=== PATIENT | female | born 1935 | race Caucasian/White ===

== ENCOUNTER 2019-10-22 08:39 | Day surgery (SDC) | payer MEDICARE ==
[2019-10-17 16:00] LABS: ALBUMIN 3.7 G/DL (3.4-5.0); ALKALINE PHOSPHATASE 92 IU/L (46-116); BLOOD UREA NITROGEN 17 MG/DL (7-18); BUN/CREATININE RATIO 25.8 (6.6-38.0); CALCIUM 9.3 MG/DL (8.5-10.1); CHLORIDE 108 MMOL/L (99-107); CREATININE 0.66 MG/DL (0.40-0.90); PRE OP ALT 21 U/L (30-65); PRE OP ANION GAP 7 (8-16); PRE OP AST 23 U/L (10-37); PRE OP BILIRUB, TOTAL 0.3 MG/DL (0.0-1.0); PRE OP GLUCOSE 80 MG/DL (70-104); PRE OP POTASSIUM 3.8 MMOL/L (3.4-5.1); PRE OP SODIUM 142 MMOL/L (135-145); TOTAL CARBON DIOXIDE 27.1 MMOL/L (24-32); TOTAL PROTEIN 7.4 G/DL (6.4-8.2); eGFR 86 ML/MIN
[2019-10-17 16:12] LABS: BASOPHILS % (AUTO) 0.7 % (0-1); EOSINOPHILS # (AUTO) 0.2 X10'3 (0-0.9); EOSINOPHILS % (AUTO) 3.9 % (0-6); LYMPHOCYTES # (AUTO) 1.7 X10'3 (1.1-4.8); LYMPHOCYTES % (AUTO) 40.9 % (21-51); MEAN CORPUSCULAR HEMOGLOBIN 29.6 PG (27.0-31.0); MEAN CORPUSCULAR HGB CONC 33.3 g/dL (33.0-36.5); MEAN CORPUSCULAR VOLUME 88.9 FL (78-98); MEAN PLATELET VOLUME 8.7 FL (7.4-10.4); MONOCYTES # (AUTO) 0.6 X10'3 (0-0.9); MONOCYTES % (AUTO) 14.7 % (2-12); NEUTROPHILS # (AUTO) 1.7 X10'3 (1.8-7.7); NEUTROPHILS % (AUTO) 39.8 % (42-75); PRE OP HEMATOCRIT 42.2 % (35.0-45.0); PRE OP HEMOGLOBIN 14.1 g/dL (12.0-16.0); PRE OP PLATELET COUNT 226 X10'3 (140-440); RED BLOOD COUNT 4.75 X10'6 (4.20-5.60); RED CELL DISTRIBUTION WIDTH 13.1 % (11.5-14.5)
[2019-10-17 16:14] LABS: CLARITY,URINE CLEAR (Clear); COLOR,URINE YELLOW (Yellow); GLUCOSE, URINE NEGATIVE (Neg); KETONES,URINE NEGATIVE (Neg); LEUKOCYTE ESTERASE ,URINE NEGATIVE (Neg); NITRITES, URINE NEGATIVE (Neg); OCCULT BLOOD,URINE TRACE-INTACT (Neg); PH,URINE 5.5 (4.8-8.0); PROTEIN,URINE NEGATIVE (Neg); UROBILINOGEN,URINE 0.2 E.U/dL (0.2-1.0)
[2019-10-17 16:17] LABS: UA COLLECTION TYPE CLN CATCH MIDSTREAM
[2019-10-17 16:24] LABS: MUCUS STRANDS NONE SEEN /LPF (Neg); SQUAMOUS EPITHELIAL CELL,UR FEW /LPF (FEW); WBC,URINE 0-4 /HPF (0-4)
[2019-10-17 16:25] LABS: BACTERIA,URINE FEW /HPF (Neg)
[~2019-10-22] VITALS: Ht 157.5 cm; Wt 68.0 kg
[~2019-10-22 08:39] MED LIST: BIMA2.5D4 EACHEYE; FLOOS RIGHT EAR; TIMO5DRO20 RIGHTEYE; clindamycin-Cleocin 900mg/D5W 50 ML IV ONE; famotidine 20mg tablet PO ONE; ringers solution, lacted 1,000 ML IV SCH
[2019-10-22 08:45] VITALS: BP 115/71
[2019-10-22] MEDS ORDERED: ringers solution, lacted 1,000 ML IV SCH (10:43)
[2019-10-22] MEDS ORDERED: proCHLORperazine 10 MG/2 ml inj IV PRN (10:45)
[2019-10-22] MEDS ORDERED: morphine 2 MG/ML inj. syringe IV PRN (10:45)
[2019-10-22] MEDS ORDERED: ondansetron/PF 4mg/2ml inj IV PRN (10:45)
[2019-10-22] MEDS ORDERED: meperidine/PF 25mg/ml syringe IV PRN ×3 (10:45)
[2019-10-22] MEDS ORDERED: morphine 4 MG/ML inj SYRINge IV PRN (10:45)
[2019-10-22] MEDS ORDERED: BUPIVAcaine/PF 2.5 mg/ml (0.25%) 30ml vial ONE (12:23)
[2019-10-22] MEDS ORDERED: ceFAZolin 1000mg inj ONE (12:23)
[2019-10-22] MEDS ORDERED: fentaNYL/PF 50MCG/1 ML 2ML syringe ONE (12:34)
[2019-10-22] MEDS ORDERED: rocuronium 10mg/ml inj IV ONE (12:37)
[2019-10-22] MEDS ORDERED: LIDOcaine 2% (20mg/ml) 5ml vial ONE (13:13)
[2019-10-22] MEDS ORDERED: propofol inj 20 ML IV ONE (13:13)
[2019-10-22 13:23] VITALS: BP 127/84
--- NOTE | 2019-10-22 13:23 | NUR ---
Received from OR via daylin, accompanied by Anesthesiologist TRIP and report given by Anesthesiolgist. VS WNL mask to 10L and patient responsive to questions. Bandaids x2 to abdomen present CDI, IVF at 100CC/hr to right wrist 20G.
[2019-10-22 13:33] VITALS: BP 119/58
[2019-10-22 13:43] VITALS: BP 126/83
[2019-10-22 13:53] VITALS: BP 132/70
--- NOTE | 2019-10-22 14:23 | NUR ---
Pt discharged to vehicle by wheelchair without incident. Bandaids remain CDI IV dc'd, pt verbalized understanding of all DC instructions. Pt belongings all returned to her. Pain meds called in by Doctors office to her pharmacy.
== END 2019-10-22 14:23 | disposition home or self-care (01) ==
LOC: PAS 08:39
PROVIDERS: ATTEND Surgery
DX: K76.89 Other specified diseases of liver (principal); E11.9 Type 2 diabetes mellitus without complications; M19.90 Unspecified osteoarthritis, unspecified site; Z85.9 Personal history of malignant neoplasm, unspecified; Z90.10 Acquired absence of unspecified breast and nipple; Z82.3 Family history of stroke; Z88.0 Allergy status to penicillin; Z88.2 Allergy status to sulfonamides; Z88.8 Allergy status to other drugs, medicaments and biological substances; Z90.49 Acquired absence of other specified parts of digestive tract; Z98.890 Other specified postprocedural states; Z90.710 Acquired absence of both cervix and uterus; Z79.899 Other long term (current) drug therapy
CPT/HCPCS: 36415; 47379; 71046; 80053; 81001; 82948; 85025; 85610; 85730; 93005; J0690; J2001; J2704; J3010; J3490; J7120; A4215; A4618; A7000

== ENCOUNTER 2020-09-25 02:39 | Inpatient (IN) | payer MEDICARE ==
[~2020-09-25] VITALS: Ht 154.9 cm; Wt 66.8 kg
[2020-09-25] VITALS (8 sets, daily range): BP systolic 114–144; BP diastolic 58–69
[~2020-09-25 02:39] MED LIST changes: -clindamycin-Cleocin 900mg/D5W 50 ML IV ONE; -famotidine 20mg tablet PO ONE; -ringers solution, lacted 1,000 ML IV SCH
[2020-09-25 03:51] LABS: ALANINE AMINOTRANSFERASE 19 U/L (12-78); ALBUMIN 3.3 G/DL (3.4-5.0); ALBUMIN/GLOBULIN RATIO 0.9 (1.1-1.5); ALKALINE PHOSPHATASE 102 IU/L (46-116); ANION GAP 11 (8-16); ASPARTATE AMINO TRANSFERASE 18 U/L (10-37); BILIRUBIN,TOTAL 0.3 MG/DL (0.1-1.0); BLOOD UREA NITROGEN 17 MG/DL (7-18); BUN/CREATININE RATIO 24.3 (6.6-38.0); CALCIUM 10.1 MG/DL (8.5-10.1); CHLORIDE 105 MMOL/L (99-107); GLUCOSE 160 MG/DL (70-104); POTASSIUM 3.9 MMOL/L (3.5-5.1); SODIUM 142 MMOL/L (135-145); TOTAL PROTEIN 7.1 G/DL (6.4-8.2); eGFR 80 ML/MIN
[2020-09-25 03:59] LABS: BASOPHILS % (AUTO) 0.8 % (0-1); EOSINOPHILS # (AUTO) 0.4 X10'3 (0-0.9); EOSINOPHILS % (AUTO) 6.6 % (0-6); HEMATOCRIT 38.2 % (35.0-45.0); HEMOGLOBIN 12.9 g/dl (12.0-16.0); LYMPHOCYTES % (AUTO) 36.1 % (21-51); MEAN CORPUSCULAR HEMOGLOBIN 31.3 PG (27.0-31.0); MEAN CORPUSCULAR HGB CONC 33.8 g/dL (33.0-36.5); MEAN CORPUSCULAR VOLUME 92.6 FL (78-98); MEAN PLATELET VOLUME 9.1 FL (7.4-10.4); MONOCYTES # (AUTO) 0.6 X10'3 (0-0.9); MONOCYTES % (AUTO) 11.9 % (2-12); NEUTROPHILS # (AUTO) 2.4 X10'3 (1.8-7.7); NEUTROPHILS % (AUTO) 44.6 % (42-75); PLATELET COUNT 186 X10'3 (140-440); RED BLOOD COUNT 4.13 X10'6 (4.20-5.60); RED CELL DISTRIBUTION WIDTH 13.6 % (11.5-14.5); WHITE BLOOD COUNT 5.4 X10'3 (4.5-11.0)
[2020-09-25 08:19] LABS: PARTIAL THROMBOPLASTIN TIME 25 SECONDS (22-32)
[2020-09-25] MEDS ORDERED: [UNRECOGNIZED DRUG - OTHER] EACHEYE (09:39)
[2020-09-25] MEDS ORDERED: nitroGLYCERIN 0.4mg SUBLingual tab SL PRN (10:10)
[2020-09-25] MEDS ORDERED: aminophylline 250mg/10ml inj. IV PRN (10:10)
[2020-09-25] MEDS ORDERED: magnesium 4gm in 100ml NS 100 ML IV PRN (10:10)
[2020-09-25] MEDS ORDERED: morphine 2 MG/ML inj. syringe IV PRN ×2 (10:10)
[2020-09-25] MEDS ORDERED: magnesium Cl slow-release 64mg tablet PO PRN (10:10)
[2020-09-25] MEDS ORDERED: acetaminophen 650mg rectal suppository RC PRN (10:10)
[2020-09-25] MEDS ORDERED: metoprolol tartrate 1mg/ml inj IV PRN (10:10)
[2020-09-25] MEDS ORDERED: ondansetron/PF 4mg/2ml inj IV PRN (10:10)
[2020-09-25] MEDS ORDERED: acetaminophen 325mg tablet PO PRN ×2 (10:10)
[2020-09-25] MEDS ORDERED: HYDROcodone/acetaminophen 5mg/325mg tablet PO PRN (10:10)
[2020-09-25] MEDS ORDERED: mag hydrox/Alum hydrox/simeth 30ml oral suspension PO PRN (10:10)
[2020-09-25] MEDS ORDERED: HYDROcodone/acetaminophen 10/325mg tab PO PRN (10:10)
[2020-09-25] MEDS ORDERED: bisacodyl 10mg suppository rectal RC PRN (10:10)
[2020-09-25] MEDS ORDERED: diphenhydrAMINE 25mg capsule PO PRN (10:10)
[2020-09-25] MEDS ORDERED: magnesium hydroxide 30ml (MOM) UD suspension PO PRN (10:10)
[2020-09-25] MEDS ORDERED: potassium Cl 20 mEq SR tablet PO PRN ×2 (10:10)
[2020-09-25] MEDS ORDERED: potassium Cl 40MEQ/1/2NS 520ml 520 ML IV PRN ×2 (10:10)
[2020-09-25] MEDS ORDERED: magnesium 2GM in 50ml NS 50 ML IV PRN (10:10)
[2020-09-25] MEDS ORDERED: regadenoson 0.4mg/5ml syringe IV PRN (10:10)
--- NOTE | 2020-09-25 10:34 | NUR ---
PT MOVED TO HOSPITAL BED. UP TO CHAIR. THEN BACK TO BED.
--- NOTE | 2020-09-25 11:05 | NUR ---
pt injected with dye by [employer] tech. no needs at this time. 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
[2020-09-25 12:33] LABS: HEMOGLOBIN A1C 7.4 % (4.5-6.2)
--- NOTE | 2020-09-25 14:10 | NUR ---
paged Dr Franco "PAGER ID: [phone] MESSAGE: [phone] Rina patient in ED with orders for tele Keli Schilling has resulted"
--- NOTE | 2020-09-25 14:15 | NUR ---
echo at bedside
--- NOTE | 2020-09-25 14:41 | NUR ---
DR TRACY AT BS
--- NOTE | 2020-09-25 14:51 | NUR ---
DR TRACY STATED PT WILL STILL BE ADMITTED TO TELE FOR OBSERVATION.
[2020-09-25] MEDS: normal saline 1000ml 1,000 ML IV SCH ×2 (15:20→23:30)
[2020-09-25 18:07] LABS: CLARITY,URINE CLEAR (Clear); COLOR,URINE YELLOW (Yellow); GLUCOSE, URINE NEGATIVE (Neg); KETONES,URINE NEGATIVE (Neg); LEUKOCYTE ESTERASE ,URINE NEGATIVE (Neg); NITRITES, URINE NEGATIVE (Neg); OCCULT BLOOD,URINE NEGATIVE (Neg); PROTEIN,URINE NEGATIVE (Neg); UA COLLECTION TYPE CLN CATCH MIDSTREAM; UROBILINOGEN,URINE 0.2 E.U/dL (0.2-1.0)
[2020-09-25] MEDS: K and/or MAG REPLACEMENT MC SCH (20:00)
[2020-09-25] MEDS ORDERED: latanoprost 0.005% 2.5ml ophthalmic drops EACHEYE SCH (21:00)
[2020-09-25] MEDS: heparin, porcine 5000 units/ml vial SQ SCH (21:09)
[2020-09-26 02:00] VITALS: BP 128/61
--- NOTE | 2020-09-26 06:42 | NUR ---
Patient in room PCU 3018. I have received report from Wu PAREKH and had the opportunity to ask questions and assume patient care.
--- NOTE | 2020-09-26 06:49 | NUR ---
Patient in room PCU 3018. I have received report from Shady PAREKH and had the opportunity to ask questions and assume patient care.
[2020-09-26 06:58] LABS: ALANINE AMINOTRANSFERASE 17 U/L (12-78); ALBUMIN 2.8 G/DL (3.4-5.0); ALBUMIN/GLOBULIN RATIO 0.8 (1.1-1.5); ALKALINE PHOSPHATASE 67 IU/L (46-116); ANION GAP 7 (8-16); ASPARTATE AMINO TRANSFERASE 13 U/L (10-37); BILIRUBIN,TOTAL 0.4 MG/DL (0.1-1.0); BLOOD UREA NITROGEN 13 MG/DL (7-18); BUN/CREATININE RATIO 20.3 (6.6-38.0); CALCIUM 8.5 MG/DL (8.5-10.1); CHLORIDE 110 MMOL/L (99-107); CHOL/HDL RATIO 3.6 (0.00-4.99); CHOLESTEROL 160 MG/DL (0-200); CREATININE 0.64 MG/DL (0.40-0.90); GLUCOSE 134 MG/DL (70-104); HDL CHOLESTEROL 45 MG/DL (35-60); LDL CHOLESTEROL 94 MG/DL (50-100); MAGNESIUM 1.8 MG/DL (1.5-2.4); PHOSPHORUS 2.9 MG/DL (2.3-4.5); POTASSIUM 3.5 MMOL/L (3.5-5.1); SODIUM 144 MMOL/L (135-145); TOTAL CARBON DIOXIDE 27.2 MMOL/L (24-32); TOTAL PROTEIN 6.1 G/DL (6.4-8.2); TRIGLYCERIDES 113 MG/DL (20-135); eGFR 89 ML/MIN
[2020-09-26 07:00] VITALS: BP 121/60
[2020-09-26 07:19] LABS: BASOPHILS % (AUTO) 0.7 % (0-1); EOSINOPHILS # (AUTO) 0.3 X10'3 (0-0.9); EOSINOPHILS % (AUTO) 5.5 % (0-6); HEMOGLOBIN 11.9 g/dl (12.0-16.0); LYMPHOCYTES # (AUTO) 1.8 X10'3 (1.1-4.8); LYMPHOCYTES % (AUTO) 38.2 % (21-51); MEAN CORPUSCULAR HEMOGLOBIN 29.3 PG (27.0-31.0); MEAN CORPUSCULAR HGB CONC 32.9 g/dL (33.0-36.5); MEAN CORPUSCULAR VOLUME 88.9 FL (78-98); MEAN PLATELET VOLUME 8.8 FL (7.4-10.4); MONOCYTES # (AUTO) 0.6 X10'3 (0-0.9); MONOCYTES % (AUTO) 12.4 % (2-12); NEUTROPHILS % (AUTO) 43.2 % (42-75); PLATELET COUNT 167 X10'3 (140-440); RED BLOOD COUNT 4.05 X10'6 (4.20-5.60); RED CELL DISTRIBUTION WIDTH 13.9 % (11.5-14.5); WHITE BLOOD COUNT 4.7 X10'3 (4.5-11.0)
[2020-09-26] MEDS: K and/or MAG REPLACEMENT MC SCH (08:00)
[2020-09-26] MEDS ORDERED: TIMOLOL MALEATE 0.25% ophth drops RIGHTEYE SCH (08:00)
[2020-09-26] MEDS: heparin, porcine 5000 units/ml vial SQ SCH (08:00)
[2020-09-26] MEDS: normal saline 1000ml 1,000 ML IV SCH (08:43)
[2020-09-26 11:00] VITALS: BP 129/76
[2020-09-26] MEDS ORDERED: PANT40TA54 PO (13:35)
[2020-09-26] MEDS ORDERED: LISI10TA4 PO (13:35)
[2020-09-26] MEDS ORDERED: METF-950 PO (13:35)
[2020-09-26] MEDS ORDERED: ASPI-611 PO (13:35)
--- NOTE | 2020-09-26 14:09 | NUR ---
DM Consult: Pt A1C 7.4 appropriate given geriatric age. Addendum: 09/26/20 at [address] Amended: Links added.
--- NOTE | 2020-09-26 15:15 | NUR ---
Patient stable for discharge per MD order. All discharge instructions reviewed with patient and all questions answered. New prescriptions sent electronically. PIV discontinued cannula intact. monitoring coordinator discontinued. Belongings collected and sent with patient. Patient walked with RN to [facility]. Mode of transport was taxi.
--- NOTE | 2020-09-28 13:34 | NUR ---
CASE MANAGEMENT DISCHARGE FOLLOW UP: Spoke with pt via telephone. Reports that she is feeling "pretty good," admits to some dizziness but she states this is normal due to history of inner ear imbalance; denies CP, SOB/difficulty breathing. Verbalizes understanding of s/sx requiring further evaluation/emergent assistance. Verbalizes understanding of new and current medications. States wants to talk to PCP about metformin before taking due to Rx handout advising caution in cases of liver dysfunction. Upon inquiry, she states that she does not have an appointment scheduled with [facility] yet, but that she is waiting for a callback to set up appointment. Provided pt with [facility]'s phone number in the event that she does not hear from them and needs to follow up. Reinforced MD advisement to check [facility] daily, at least once per day fasting in AM. 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 States that she has not picked it up because the pharmacist didn't tell her to. She also states that pharmacist did not discuss s/sx of hypoglycemia with pt, educated pt on symptoms and to check FSB[facility], if low to eat small snack or have some juice, she verbalizes understanding. Verbalizes understanding of the importance in making/keeping follow-up appointments. Pt would like to know if she can pick up truck driver the eye drops that the hospital used while she was admitted, notified pt that because the medications were not sent home with her on day of discharge that they have been disposed. States no further questions/concerns at this time.
== END 2020-09-26 15:15 | disposition home or self-care (01) | DRG 392 ==
LOC: ER 02:39 → ED HOLD 10:09 → EDBEDREQ 21:01 → PCU 3S 22:15
PROVIDERS: ADMIT Family Medicine; ATTEND Family Medicine
PROC: 4A02XM4 Measurement of Cardiac Total Activity, External Approach (ICD-10-PCS; principal; 2020-09-25)
PROC: 3E073KZ Introduction of Other Diagnostic Substance into Coronary Artery, Percutaneous Approach (ICD-10-PCS; 2020-09-25)
DX: K21.9 Gastro-esophageal reflux disease without esophagitis (principal); E11.9 Type 2 diabetes mellitus without complications; I10 Essential (primary) hypertension; M19.90 Unspecified osteoarthritis, unspecified site; Z96.652 Presence of left artificial knee joint; Z66 Do not resuscitate; Z60.2 Problems related to living alone; Z82.49 Family history of ischemic heart disease and other diseases of the circulatory system; Z83.3 Family history of diabetes mellitus; Z79.84 Long term (current) use of oral hypoglycemic drugs; Z85.3 Personal history of malignant neoplasm of breast; Z90.12 Acquired absence of left breast and nipple; Z90.49 Acquired absence of other specified parts of digestive tract; Z90.710 Acquired absence of both cervix and uterus; Z88.0 Allergy status to penicillin; Z88.2 Allergy status to sulfonamides; Z88.8 Allergy status to other drugs, medicaments and biological substances; Z98.42 Cataract extraction status, left eye; Z98.41 Cataract extraction status, right eye; Z81.1 Family history of alcohol abuse and dependence; I25.10 Atherosclerotic heart disease of native coronary artery without angina pectoris
CPT/HCPCS: 36415; 71045; 78452; 80053; 80061; 81003; 82948; 83036; 83735; 83880; 84100; 84484; 85025; 85610; 85730; 87081; 93005; 93017; 93308; 97116; 97161; 97530; 99285; A9500; G0378; J1644; J2785; J7030

== ENCOUNTER 2021-04-13 05:20 | Day surgery (SDC) | payer MEDICARE ==
[2021-04-08 11:08] LABS: BASOPHILS % (AUTO) 0.7 % (0-1); EOSINOPHILS # (AUTO) 0.1 X10'3 (0-0.9); EOSINOPHILS % (AUTO) 2.3 % (0-6); LYMPHOCYTES # (AUTO) 1.5 X10'3 (1.1-4.8); LYMPHOCYTES % (AUTO) 23.5 % (21-51); MEAN CORPUSCULAR HEMOGLOBIN 30.8 PG (27.0-31.0); MEAN CORPUSCULAR HGB CONC 33.9 g/dL (33.0-36.5); MEAN CORPUSCULAR VOLUME 91.1 FL (78-98); MEAN PLATELET VOLUME 8.8 FL (7.4-10.4); MONOCYTES # (AUTO) 0.4 X10'3 (0-0.9); MONOCYTES % (AUTO) 6.9 % (2-12); NEUTROPHILS # (AUTO) 4.2 X10'3 (1.8-7.7); NEUTROPHILS % (AUTO) 66.6 % (42-75); PRE OP HEMATOCRIT 40.8 % (35.0-45.0); PRE OP HEMOGLOBIN 13.8 g/dL (12.0-16.0); PRE OP PLATELET COUNT 208 X10'3 (140-440); RED BLOOD COUNT 4.48 X10'6 (4.20-5.60); RED CELL DISTRIBUTION WIDTH 14.2 % (11.5-14.5)
[2021-04-08 11:10] LABS: CLARITY,URINE CLEAR (Clear); COLOR,URINE YELLOW (Yellow); GLUCOSE, URINE 100 mg/dl (Neg); KETONES,URINE NEGATIVE (Neg); LEUKOCYTE ESTERASE ,URINE NEGATIVE (Neg); NITRITES, URINE NEGATIVE (Neg); OCCULT BLOOD,URINE NEGATIVE (Neg); PROTEIN,URINE NEGATIVE (Neg); UROBILINOGEN,URINE 0.2 E.U/dL (0.2-1.0)
[2021-04-08 11:18] LABS: UA COLLECTION TYPE CLN CATCH MIDSTREAM
[2021-04-08 11:23] LABS: PRE OP PROTIME 10.5 SECONDS (9.0-12.0)
[2021-04-08 11:30] LABS: ALBUMIN 3.5 G/DL (3.4-5.0); ALBUMIN/GLOBULIN RATIO 0.9 (1.1-1.5); ALKALINE PHOSPHATASE 98 IU/L (46-116); BLOOD UREA NITROGEN 18 MG/DL (7-18); BUN/CREATININE RATIO 20.5 (6.6-38.0); CHLORIDE 107 MMOL/L (99-107); CREATININE 0.88 MG/DL (0.40-0.90); PRE OP ALT 16 U/L (30-65); PRE OP ANION GAP 12 (8-16); PRE OP AST 16 U/L (10-37); PRE OP BILIRUB, TOTAL 0.4 MG/DL (0.0-1.0); PRE OP POTASSIUM 3.8 MMOL/L (3.4-5.1); PRE OP SODIUM 143 MMOL/L (135-145); TOTAL CARBON DIOXIDE 23.8 MMOL/L (24-32); TOTAL PROTEIN 7.3 G/DL (6.4-8.2); eGFR 61 ML/MIN
[2021-04-08 11:31] LABS: PRE OP GLUCOSE 250 MG/DL (70-104)
[~2021-04-13] VITALS: Ht 152.4 cm; Wt 67.0 kg
[2021-04-13] VITALS (9 sets, daily range): BP systolic 124–159; BP diastolic 67–88
[~2021-04-13 05:20] MED LIST changes: -FLOOS RIGHT EAR; +METF-900 PO; +ringers solution, lacted 1,000 ML IV SCH
[2021-04-13] MEDS ORDERED: famotidine 20mg tablet PO ONE (05:30)
[2021-04-13] MEDS ORDERED: clindamycin-Cleocin 900mg/D5W 50 ML IV ONE (05:30)
[2021-04-13] MEDS ORDERED: BUPIVAcaine/PF 2.5mg/ml (0.25%) 10ml vial ONE (07:03)
[2021-04-13] MEDS ORDERED: sevoflurane 250ml liquid IH ONE (07:36)
[2021-04-13] MEDS ORDERED: fentaNYL/PF 50MCG/1 ML 2ML syringe ONE (07:41)
[2021-04-13] MEDS ORDERED: morphine 2 MG/ML inj. syringe IV PRN (08:00)
[2021-04-13] MEDS ORDERED: proCHLORperazine 10 MG/2 ml inj IV PRN (08:00)
[2021-04-13] MEDS ORDERED: acetaminophen 1,000mg/100ml IV 100 ML IV PRN (08:00)
[2021-04-13] MEDS ORDERED: ringers solution, lacted 1,000 ML IV SCH (08:00)
[2021-04-13] MEDS ORDERED: meperidine/PF 25mg/ml syringe IV PRN ×3 (08:00)
[2021-04-13] MEDS ORDERED: labetalol 20mg/4ml (5mg/ml) syringe IV PRN (08:00)
[2021-04-13] MEDS ORDERED: ondansetron/PF 4mg/2ml inj IV PRN (08:00)
[2021-04-13] MEDS ORDERED: hydrALAZINE 20mg/ml inj. IV PRN (08:00)
[2021-04-13] MEDS ORDERED: morphine 4 MG/ML inj SYRINge IV PRN (08:00)
[2021-04-13] MEDS ORDERED: dexamethasone sod phosphate 4mg/ml inj. ONE (08:03)
[2021-04-13] MEDS ORDERED: ePHEDrine 50MG/ML INJ. ONE (08:03)
[2021-04-13] MEDS ORDERED: midazolam 1 mg/ML 2ml injection ONE (08:03)
[2021-04-13] MEDS ORDERED: LIDOcaine 2% (20mg/ml) 5ml vial ONE (08:04)
[2021-04-13] MEDS ORDERED: rocuronium 10mg/ml inj IV ONE (08:04)
[2021-04-13] MEDS ORDERED: propofol inj 20 ML IV ONE (08:04)
[2021-04-13] MEDS ORDERED: ondansetron/PF 4mg/2ml inj ONE (08:04)
[2021-04-13] MEDS ORDERED: 0.9 % SODIUM CHLORIDE 10 ML VIAL ONE (08:04)
[2021-04-13] MEDS ORDERED: neostigmine methylsulfate 1 MG/ML 10ml vial ONE (08:31)
[2021-04-13] MEDS ORDERED: glycopyrrolate 0.2mg/ml inj ONE (08:31)
--- NOTE | 2021-04-13 08:40 | NUR ---
Received from OR via , accompanied by Anesthesiologist and report given by Anesthesiolgist. PATIENT A&OX4, DENIES PAIN, V/S WNL, SCD ON , PIV 20G RUE, DERMABONDED LAPS SITES CLOSED CDI TO ABDOMEN
[2021-04-13] MEDS ORDERED: HYDROcodone/acetaminophen 10/325mg tab PO ONE (09:00)
--- NOTE | 2021-04-13 10:10 | NUR ---
A&OX4, DENIES PAIN, V/S WNL, SCD OFF , PIV 20G RUE D/C, DERMABONDED LAPS SITES CLOSED CDI TO ABDOMEN.I HAVE REVIEWED D/C INSTRUCTIONS WITH PATIENT AND THEY HAVE VERBALIZED UNDERSTANDING OF INSTRUCTIONS. PATIENT D/C HOME WITH ALL BELONGINGS AND CAB GAVE TRANSPORT
== END 2021-04-13 10:10 | disposition home or self-care (01) ==
LOC: PAS 05:20
PROVIDERS: ATTEND Surgery
DX: K76.89 Other specified diseases of liver (principal); I48.91 Unspecified atrial fibrillation; M19.90 Unspecified osteoarthritis, unspecified site; E11.39 Type 2 diabetes mellitus with other diabetic ophthalmic complication; H40.9 Unspecified glaucoma; Z20.822 Contact with and (suspected) exposure to COVID-19; Z88.0 Allergy status to penicillin; Z88.8 Allergy status to other drugs, medicaments and biological substances; Z88.2 Allergy status to sulfonamides; Z79.899 Other long term (current) drug therapy; Z79.84 Long term (current) use of oral hypoglycemic drugs; Z90.49 Acquired absence of other specified parts of digestive tract; Z90.710 Acquired absence of both cervix and uterus; Z90.12 Acquired absence of left breast and nipple; Z98.890 Other specified postprocedural states; Z85.3 Personal history of malignant neoplasm of breast
CPT/HCPCS: 36415; 47379; 71046; 80053; 81003; 82948; 85025; 85610; 85730; 86885; 86900; 86901; 93005; J1100; J2001; J2250; J2405; J2704; J2710; J3010; J3490; J7120; U0003; U0005; Z7506; Z7508; Z7512; A4215; A4618; A7000

== ENCOUNTER 2022-03-17 08:17 | Day surgery (SDC) | payer MEDICARE ==
[2022-03-17] VITALS (18 sets, daily range): BP systolic 114–173; BP diastolic 54–117
[~2022-03-17] VITALS: Ht 154.9 cm; Wt 60.6 kg
[~2022-03-17 08:17] MED LIST changes: +ASPI81TA52 PO; -ringers solution, lacted 1,000 ML IV SCH
[2022-03-17] MEDS ORDERED: normal saline 1000ml 1,000 ML IV PRN (08:50)
[2022-03-17 09:29] LABS: BASOPHILS % (AUTO) 0.5 % (0-1); EOSINOPHILS # (AUTO) 0.2 X10'3 (0-0.9); EOSINOPHILS % (AUTO) 2.8 % (0-6); HEMATOCRIT 39.1 % (35.0-45.0); HEMOGLOBIN 13.1 g/dl (12.0-16.0); LYMPHOCYTES # (AUTO) 1.6 X10'3 (1.1-4.8); LYMPHOCYTES % (AUTO) 26.9 % (21-51); MEAN CORPUSCULAR HGB CONC 33.5 g/dL (33.0-36.5); MEAN CORPUSCULAR VOLUME 89.5 FL (78-98); MEAN PLATELET VOLUME 8.6 FL (7.4-10.4); MONOCYTES # (AUTO) 0.5 X10'3 (0-0.9); MONOCYTES % (AUTO) 7.9 % (2-12); NEUTROPHILS # (AUTO) 3.6 X10'3 (1.8-7.7); NEUTROPHILS % (AUTO) 61.9 % (42-75); PLATELET COUNT 185 X10'3 (140-440); RED BLOOD COUNT 4.37 X10'6 (4.20-5.60); RED CELL DISTRIBUTION WIDTH 13.6 % (11.5-14.5); WHITE BLOOD COUNT 5.8 X10'3 (4.5-11.0)
[2022-03-17] MEDS ORDERED: normal saline 1000ml 1,000 ML IV SCH (11:15)
[2022-03-17] MEDS ORDERED: acetaminophen 325mg tablet PO ONE (12:35)
[2022-03-17] MEDS ORDERED: ketorolac trometh. 30mg/ml inj. IV ONE (12:35)
== END 2022-03-17 14:20 | disposition home or self-care (01) ==
LOC: SSTAY O 08:17
PROVIDERS: ATTEND Radiology Vascular & Interventional Radiology
DX: K76.89 Other specified diseases of liver (principal); Z88.0 Allergy status to penicillin; Z88.2 Allergy status to sulfonamides; Z88.8 Allergy status to other drugs, medicaments and biological substances; Z79.82 Long term (current) use of aspirin; Z82.49 Family history of ischemic heart disease and other diseases of the circulatory system; Z83.3 Family history of diabetes mellitus; Z79.899 Other long term (current) drug therapy; Z98.890 Other specified postprocedural states
CPT/HCPCS: 36415; 49405; 82948; 85025; J1885; J7030